=== PATIENT | male | born 1990 | race Caucasian/White ===

== ENCOUNTER 2020-12-09 22:27 | Emergency (ER) | payer OTHER ==
[~2020-12-09] VITALS: Ht 188 cm; Wt 136.1 kg
--- NOTE | ~2020-12-09 | EMS ---
[facility] [address] [place] [address] EMS Patient Care Report Name: ELIGIO SHELL Room #: DEP LINDA Hwang#: [id number] Admission: 12/09/20 Attend Phys: Discharge: 12/10/20 Date of : [birth year] Report #: [id number] THIS REPORT FOR: //name// Report Transmitted: 12/10/2020 08:39 EMS Care Summary [place], [place]/[facility] Incident [id number] @ 12/09/2020 21:50 Incident Location [address] [place] [address] Patient ELIGIO SHELL Male, 30 Years 1990 Patient Address [address] [place] [address] Patient History Hypertension (HTN), Patient Allergies No known allergies, Patient Medications None Reported, Chief Complaint Confusion/disorientation Disposition Transported No Lights/[place] Dispatch Reason Chest Pain (Non-Traumatic) Transported To [facility] Narrative Arrived to meet PD on scene with the patient. Patient stated he had been on the phone with his and had developed a sudden onset of confusion and difficulty speaking. Patient had called EMS due to being concerned for the patient's well being. M41 arrived on scene to PD with the patient. Patient [facility] [address] [place] [address] EMS Patient Care Report Name: ELIGIO SHELL Room #: DEP ER Jaiden#: [id number] Admission: 12/09/20 Attend Phys: Discharge: 12/10/20 Date of : [birth year] Report #: [id number] stated he was mildly confused and felt disoriented, but was able to answer all orientation questions correctly. Patient stated he had a headache, right shoulder pain, and mild right sided weakness. Patient denied any soa, chest pain, vomiting, or diarrhea. Patient did state he was mildly nauseated but did not believe he was going to vomit. Patient reported having a family history of strokes. Patient stated he had HTN, but was not taking any medications to mitigate that condition. Patient reported daily use of multiple energy drinks combined with other forms of caffeine. Upon arrival patient was ambulatory and assisted to the ambulance. Patient's gait was normal. Patient was slow to respond to questions and was aware of his slow and poor responsiveness. Patient had noticeable weakness in his right hand on a retail and restaurant strength test and mild right arm drift. No facial droop or slurred speech noted. Vital signs, glucose, and 3 lead EKG obtained. Patient transported and transferred to receiving facility without change in patient condition. Initial Vitals @22:03P: 94,BP: 137/97,CO: 5,SpO2: 97, @21:58P: 98,R: 16,BP: 161/95,Pain: 4/10,GCS: 14,Glucose: 97,CO: 6,SpO2: 98,Revised Trauma: 12, Assessments @21:54MENTAL:Confused,Person Oriented,Event Oriented,Place Oriented,Time Oriented,SKIN:Diaphoresis,HEENT:Eyes: Right Pupil: 4-mm,Eyes: Left Pupil: 4-mm,Head/Face: No Abnormalities,Neck/Airway: No Abnormalities,LUNG SOUNDS:General: Nausea,ABDOMEN:General: Nausea,PELVIS//GI:No Abnormalities,EXTREMITIES:Right Arm: Weakness,Left Arm: No Abnormalities,Left Leg: No Abnormalities,Right Leg: No Abnormalities,PULSE:NEURO:No Abnormalities, Impression Confusion/Delirium Procedures @21:54ALS AssessmentResponse: UnchangedSucceeded@22:083-Lead ECGResponse: UnchangedSucceeded Timeline 21:49,Call Received 21:49,Dispatch Notified 21:50,Dispatched 21:50,En Route 21:53,On Scene 21:54,At Patient 21:54,ALS Assessment,Response: UnchangedSucceeded, 21:58,BP: 161/95 M,PULSE: 98,RR: 16 R,SPO2: 98 Ox,ETCO2: ,B,PAIN: 4,GCS: 14, [address] [address] EMS Patient Care Report Name: ELIGIO SHELL Room #: DEP [facility]#: [id number] Admission: 12/09/20 Attend Phys: Discharge: 12/10/20 Date of : [birth year] Report #: [id number] 22:03,BP: 137/97 M,PULSE: 94,RR: R,SPO2: 97 Ox,ETCO2: ,BG: ,PAIN: ,GCS: , 22:07,Depart Scene 22:08,3-Lead ECG,Response: UnchangedSucceeded, 22:20,At Destination 22:36,Call Closed Disclaimer v1.1 Copyright 2020 [employer] This EMS Care Summary contains data elements from the applicable legal record (which may be displayed differently). It is designed to provide pertinent information for the following purposes: continuity of care, clinical quality, and state data reporting. The complete legal record is available to ED staff and administrators of the receiving hospital in [employer] Patient Tracker. All data is provided "as is."
[2020-12-10 00:24] LABS: ABSOLUTE NEUTROPHILS 9.1 thou/uL (1.4-8.2); BASOPHILS 0.4 % (0.0-2.0); EOSINOPHILS 0.4 % (0.0-3.0); HEMOGLOBIN 14.5 gm/dL (14.0-18.0); LYMPHOCYTES 16.9 % (24.0-44.0); MCH 29.4 pg (26.0-34.0); MCHC 33.8 g/dL (28.0-37.0); MCV 86.9 fL (80.0-100.0); MONOCYTES 6.1 % (1.0-8.0); PLATELET COUNT 222 thou/uL (150-400); POLYS 76.2 % (36.0-66.0); RBC 4.94 mil/uL (4.50-6.00); RDW 12.8 % (10.5-14.5)
[2020-12-10 00:26] LABS: ANION GAP 8 mmol/L (7-16); BUN 15 mg/dL (7-18); CALCIUM 9.1 mg/dL (8.5-10.1); CHLORIDE 102 mmol/L (98-107); CO2 29 mmol/L (21-32); CREATININE 0.9 mg/dL (0.7-1.3); GLUCOSE 126 mg/dL (74-106); POTASSIUM 3.8 mmol/L (3.5-5.1); SODIUM 139 mmol/L (136-145)
[2020-12-10 00:29] LABS: APTT 25.9 Seconds (24.5-32.8); INR 0.96; PROTIME 10.5 Seconds (10.5-12.1)
[2020-12-10 00:32] LABS: DIRECT BILIRUBIN < 0.1 mg/dL (<0.1-0.2); SGOT 18 U/L (15-37); SGPT 35 U/L (16-63); TOTAL BILIRUBIN 0.4 mg/dL (0.2-1.0); TOTAL PROTEIN 7.5 g/dL (6.4-8.2)
[2020-12-10 02:56] VITALS: BP 141/85
--- NOTE | 2020-12-10 08:17 | EKG ---
[place] [address] [employer] 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 12/10/20 0817 [id number] Wilmer Stallings MD, FACC /EPI
== END 2020-12-10 02:56 | disposition home or self-care (01) ==
LOC: ER 22:27
PROVIDERS: Emergency Medicine
DX: R56.9 Unspecified convulsions (principal); I10 Essential (primary) hypertension